=== PATIENT | female | born 1950 | race Caucasian/White ===

== ENCOUNTER 2019-09-22 18:21 | Emergency (ER) | payer SELFPAY ==
[~2019-09-22] VITALS: Ht 154.9 cm; Wt 59.9 kg
[~2019-09-22 18:21] MED LIST: ATEN50TA2 PO; METF-938 PO
[2019-09-22 18:47] VITALS: BP 120/67
--- NOTE | 2019-09-22 19:55 | NUR ---
PT TAKEN TO BED #11 VIA WHEELCHAIR.
--- NOTE | 2019-09-22 19:57 | NUR ---
68 Y/O FEMALE PRESENTED TO ED C/O COUGH/BODY ACHES / RIGHT FLANK PAIN X 2 DAYS. PT STATES SHE HAS TAKEN MEDICATION, NOT SURE THE NAME , W/ NO RELIEF. PT BREATHING EVEN AND UNLABORED, SA02 94%. A/O X4. PT DENIES N/V/D/FEVER. PT RESTING IN BED, LOCKED AND IN LOWEST POSITION, HOB ELEVATED, SIDE RAILS X 2 FOR PT SAFETY. PT CONNECTED TO REHABILITATION WORKER, PULSE OX AND BP CUFF. PMH: DM, HTN NKA
--- NOTE | 2019-09-22 20:34 | NUR ---
PT C/O RIGHT FLANK PAIN 10/10, ERMD MADE AWARE. PER ERMD ADMINISTER IVP TORADOL 30MG.
[2019-09-22] MEDS ORDERED: KETOROLAC 30 MG/ML VIAL IVP ONE (20:35)
[2019-09-22] MEDS ORDERED: NACL 0.9% 1,000 ML IV ONE (20:40)
[2019-09-22 20:41] LABS: BASOPHILS # (AUTO) 0.1 K/uL (0.00-0.22); BASOPHILS % (AUTO) 0.7 % (0.0-2.0); HEMATOCRIT 35.6 % (36-48); LYMPHOCYTES # (AUTO) 1.2 K/uL (2.5-16.5); LYMPHOCYTES % (AUTO) 14.9 % (20.5-51.1); MEAN CORPUSCULAR HEMOGLOBIN 32 pg (27-31); MEAN CORPUSCULAR HGB CONC 34 g/dL (33-37); MEAN CORPUSCULAR VOLUME 93.9 fL (80-94); MONOCYTES # (AUTO) 0.5 K/uL (0.8-1.0); MONOCYTES % (AUTO) 6.4 % (1.7-9.3); NEUTROPHILS # (AUTO) 6.2 K/uL (1.8-7.7); PLATELET COUNT (AUTO) 178 K/uL (140-450); RED BLOOD CELL COUNT(AUTO) 3.79 MIL/uL (4.20-5.40); RED CELL DISTRIBUTION WIDTH 12.9 % (11.6-13.7); WHITE BLOOD COUNT (AUTO) 7.9 K/uL (4.8-10.8)
[2019-09-22 21:19] LABS: ALBUMIN 3.3 g/dL (3.4-5.0); ANION GAP 14.7 (8-16); CARBON DIOXIDE 25.4 mmol/L (21-32); CREATININE 0.9 mg/dL (0.6-1.3); POTASSIUM 4.1 mmol/L (3.5-5.1); TOTAL BILIRUBIN 0.4 mg/dL (0.0-1.0)
--- NOTE | 2019-09-22 22:30 | NUR ---
PT RESTING IN BED, AROUSABLE BY VERBAL STIMULATION, BED LOCKED AND IN LOWEST POSITION, HOB ELEVATED , SIDE RAILS X2 FOR PT SAFETY.
--- NOTE | 2019-09-23 00:01 | NUR ---
PT RESTING IN BED, LOCKED AND IN LOWEST POSITION, HOB ELEVATED, SIDE RAIL X2 FOR PT SAFETY . PT VSS.
[2019-09-23 00:07] LABS: APPEARANCE,URINE CLEAR (CLEAR); BILIRUBIN,URINE NEGATIVE (NEGATIVE); BLOOD, URINE NEGATIVE (NEGATIVE); COLOR,URINE YELLOW (YELLOW); LEUKOCYTE ESTERASE ,URINE TRACE (NEGATIVE); NITRITE, URINE NEGATIVE (NEGATIVE); UGLUCOSE NEGATIVE (NEGATIVE)
[2019-09-23 00:10] LABS: RBC,URINE 0-5 /HPF (0-5); WBC,URINE 0-5 /HPF (0-5)
[2019-09-23 00:31] VITALS: BP 102/55
--- NOTE | 2019-09-23 00:31 | NUR ---
Patient discharged with v/s stable. Written and verbal after care instructions given and explained. Patient alert, oriented and verbalized understanding of instructions. Wheel Chair Assisted with to car. All questions addressed prior to discharge. ID band removed. Patient advised to follow up with PMD. Rx of ACETAMINOPHEN, AZITHROMYCIN AND ALBUTEROL given. Patient educated on indication of medication including possible reaction and side effects. Opportunity to ask questions provided and answered.
[2019-09-25] MEDS ORDERED: LISI-420 PO (20:44)
[2019-09-25] MEDS ORDERED: SITA100T8 PO (20:44)
[2019-09-25] MEDS ORDERED: SIMV40TA1 PO (20:44)
[2019-09-25] MEDS ORDERED: GLIP10TA3 PO (20:44)
== END 2019-09-23 00:31 | disposition home or self-care (01) ==
LOC: MED 18:21
DX: J18.9 Pneumonia, unspecified organism (principal); I10 Essential (primary) hypertension; E11.9 Type 2 diabetes mellitus without complications; Z20.828 Contact with and (suspected) exposure to other viral communicable diseases; Z79.899 Other long term (current) drug therapy
CPT/HCPCS: 36415; 71045; 80053; 81001; 85025; 96374; 99284; J1885; J7030; Q0092; 81025

== ENCOUNTER 2020-04-15 19:20 | Emergency (ER) | payer MEDICAID, SELFPAY ==
[~2020-04-15] VITALS: Ht 152.4 cm; Wt 59.9 kg
[~2020-04-15 19:20] MED LIST changes: +ASCO-519 PO; +ASPI-1205 PO; -ATEN50TA2 PO; +AZIT250T3 PO; +CHOL400T12 PO; +DEXA6TAB8 PO; +GLIP10TA3 PO; +LISI-420 PO; -METF-938 PO; +SIMV40TA1 PO; +SITA100T8 PO; +ZINC220C28 PO
[2020-04-15 19:27] VITALS: BP 151/87
[2020-04-15] MEDS ORDERED: ASPIRIN 81 MG TAB.CHEW PO ONE (19:35)
[2020-04-15] MEDS ORDERED: NACL 0.9% 500 ML IV ONE (19:35)
[2020-04-15] MEDS ORDERED: KETOROLAC 30 MG/ML VIAL IVP ONE (19:40)
[2020-04-15] MEDS ORDERED: PANTOPRAZOLE 40 MG INJ VIAL IVP ONE (19:40)
[2020-04-15 19:55] LABS: BASOPHILS # (AUTO) 0.1 K/uL (0.00-0.22); EOSINOPHILS # (AUTO) 0.2 K/uL (0-0.4); NEUTROPHILS # (AUTO) 4.6 K/uL (1.8-7.7); RED BLOOD CELL COUNT(AUTO) 4.29 MIL/uL (4.20-5.40)
[2020-04-15 20:06] LABS: ALBUMIN 4.1 g/dL (3.4-5.0); ANION GAP 14.4 (8-16); BASOPHILS % (AUTO) 0.9 % (0.0-2.0); CARBON DIOXIDE 27.6 mmol/L (21-32); EOSINOPHILS % (AUTO) 1.7 % (0.0-4.0); HEMATOCRIT 40.2 % (36-48); HEMOGLOBIN 13.8 g/dL (12.0-16.0); LYMPHOCYTES % (AUTO) 41.9 % (20.5-51.1); MEAN CORPUSCULAR HEMOGLOBIN 32 pg (27-31); MEAN CORPUSCULAR HGB CONC 34 g/dL (33-37); MEAN CORPUSCULAR VOLUME 93.7 fL (80-94); MONOCYTES # (AUTO) 0.6 K/uL (0.8-1.0); MONOCYTES % (AUTO) 6.7 % (1.7-9.3); NEUTROPHILS % (AUTO) 48.8 % (42.2-75.2); PLATELET COUNT (AUTO) 332 K/uL (140-450); RED CELL DISTRIBUTION WIDTH 12.6 % (11.6-13.7); TOTAL BILIRUBIN 0.3 mg/dL (0.0-1.0); WHITE BLOOD COUNT (AUTO) 9.4 K/uL (4.8-10.8)
[2020-04-15] MEDS ORDERED: MORPHINE SULFATE 2 MG/ML SYR IVP ONE (20:35)
[2020-04-15 21:24] VITALS: BP 106/67
== END 2020-04-15 21:09 | disposition home or self-care (01) ==
LOC: MED 19:20
DX: R07.89 Other chest pain (principal); K29.70 Gastritis, unspecified, without bleeding; E11.9 Type 2 diabetes mellitus without complications; I10 Essential (primary) hypertension; Z90.49 Acquired absence of other specified parts of digestive tract; Z79.899 Other long term (current) drug therapy
CPT/HCPCS: 36415; 71045; 80053; 84484; 85025; 85379; 85610; 85730; 96374; 96375; 99285; C9113; J1885; J2270; J7030

== ENCOUNTER 2020-06-19 17:37 | Emergency (ER) | payer MEDICAID ==
[~2020-06-19] VITALS: Ht 154.9 cm; Wt 52.2 kg
[~2020-06-19 17:37] MED LIST changes: -LISI-420 PO; +LISI-487 PO
[2020-06-19 17:44] VITALS: BP 145/87
--- NOTE | 2020-06-19 17:50 | NUR ---
Pt ambulated to bed 9.
--- NOTE | 2020-06-19 18:01 | NUR ---
69 Y/O FEMALE C/O PELVIC PAIN x3 DAYS, LEG PAIN X1 MONTH (PT STATES SHE HAS THE SENSATION OF PINS AND NEEDLES AT BLE), HEAD PAIN. PT DENIES INJURY. PT RATES PAIN 10/10 IN HER HEAD BUT IS NOT ABLE TO DESCRIBE THE KIND OF PAIN. PT C/O TINGLING IN ALL EXTREMETIES WITH NUMBNESS IN FINGERS. PT HAS FULL SENSATION OF EXTREMETIES, FULL ROM, WITH CAP REFILL <3 SECONDS. PT IS ABLE TO AMBULATE WITH EVEN STEADY GAIT. PT STATES SHE HAD CHILLS AND FEVER BUT ORAL TEMP IS 98.8. PT DENIES N/V. DENIES DYSURIA. PT STATES DM IS UNCONTROLLED- EITHER HIGH OR LOW- BS 64. PT STATES SHE TOOK 500 ACETAMINOPHEN WITH NO RELEIF. PT IS A/O X4 WITH EVEN AND UNLABORED RESPIRATIONS. PMH: DM, HTN,HLD NKDA
--- NOTE | 2020-06-19 18:17 | NUR ---
DR ROMERO AT BEDSIDE
[2020-06-19] MEDS ORDERED: ACETAMINOPHEN 325 MG TAB PO ONE (18:30)
--- NOTE | 2020-06-19 18:44 | NUR ---
PT AMBULATED TO RESTROOM FOR URINE SAMPLE WITH STEADY GAIT
[2020-06-19 18:57] LABS: BASOPHILS # (AUTO) 0.1 K/uL (0.00-0.22); BASOPHILS % (AUTO) 1.1 % (0.0-2.0); EOSINOPHILS # (AUTO) 0.2 K/uL (0-0.4); EOSINOPHILS % (AUTO) 1.5 % (0.0-4.0); HEMOGLOBIN 12.7 g/dL (12.0-16.0); LYMPHOCYTES # (AUTO) 3.9 K/uL (2.5-16.5); LYMPHOCYTES % (AUTO) 34.3 % (20.5-51.1); MEAN CORPUSCULAR HEMOGLOBIN 32 pg (27-31); MEAN CORPUSCULAR HGB CONC 34 g/dL (33-37); MEAN CORPUSCULAR VOLUME 94.4 fL (80-94); MONOCYTES # (AUTO) 0.9 K/uL (0.8-1.0); MONOCYTES % (AUTO) 8.1 % (1.7-9.3); NEUTROPHILS # (AUTO) 6.3 K/uL (1.8-7.7); PLATELET COUNT (AUTO) 316 K/uL (140-450); RED BLOOD CELL COUNT(AUTO) 3.92 MIL/uL (4.20-5.40); RED CELL DISTRIBUTION WIDTH 12.5 % (11.6-13.7); WHITE BLOOD COUNT (AUTO) 11.5 K/uL (4.8-10.8)
--- NOTE | 2020-06-19 19:20 | NUR ---
GAVE REPORT TO MIKE AND CHAITANYA RNS, TRANSFER OF CARE AT THIS TIME.
--- NOTE | 2020-06-19 19:21 | NUR ---
RECEIVED REPORT FROM SKYLAR MONTOYA FOR CONTINUITY OF CARE
[2020-06-19 19:23] LABS: ANION GAP 13.2 (8-16); CARBON DIOXIDE 26.7 mmol/L (21-32); CREATININE 0.9 mg/dL (0.6-1.3); POTASSIUM 3.9 mmol/L (3.5-5.1)
[2020-06-19] MEDS ORDERED: IBUPROFEN 400 MG TAB PO ONE (20:20)
[2020-06-19] MEDS ORDERED: ONDANSETRON 4 MG ODT PO ONE (20:20)
[2020-06-19] MEDS ORDERED: NAPR-54 PO (20:28)
[2020-06-19 20:47] VITALS: BP 145/87
== END 2020-06-19 20:47 | disposition home or self-care (01) ==
LOC: MED 17:37
DX: E11.40 Type 2 diabetes mellitus with diabetic neuropathy, unspecified (principal); G44.221 Chronic tension-type headache, intractable; I10 Essential (primary) hypertension; Z79.899 Other long term (current) drug therapy
CPT/HCPCS: 36415; 80048; 81002; 85025; 99284; Q0162

== ENCOUNTER 2021-07-26 12:44 | Emergency (ER) | payer MEDICAID ==
[~2021-07-26] VITALS: Ht 157.5 cm; Wt 60.3 kg
[~2021-07-26 12:44] MED LIST changes: +NAPR-54 PO
[2021-07-26 13:04] VITALS: BP 137/73
--- NOTE | 2021-07-26 14:59 | NUR ---
Patient ambulated with steady gait to bed 7.
--- NOTE | 2021-07-26 15:09 | NUR ---
XR AT PT BEDSIDE
--- NOTE | 2021-07-26 15:10 | NUR ---
70 Y/O FEMALE C/O SOB XLAST NIGHT. SPO2 97% AT THIS TIME. PT ALSO C/O FATIGUE AND HAVING "HIGH BP LAST NIGHT OF 160/90". PT TOOK TYLENOL AT 0800 THIS MORNING, DENIES ANY PAIN AT THIS TIME. PT DENIES CHEST PAIN, SOB. PT ALERT AND ORIENTED X4. BED LOCKED IN LWEST POSITION. BED RAIL X1. PMH:HTN, DM,HDL, CHRONIC HEAD/NECK PAIN. ALLERGIES:LORATADINE
--- NOTE | 2021-07-26 15:17 | NUR ---
LAB AT PT BEDSIDE
--- NOTE | 2021-07-26 15:19 | NUR ---
URINE HANDED TO LAB
[2021-07-26 15:43] LABS: BASOPHILS % (AUTO) 0.7 % (0.0-2.0); EOSINOPHILS # (AUTO) 0.2 K/uL (0-0.4); EOSINOPHILS % (AUTO) 2.5 % (0.0-4.0); HEMATOCRIT 38.5 % (36-48); HEMOGLOBIN 12.9 g/dL (12.0-16.0); LYMPHOCYTES # (AUTO) 2.5 K/uL (2.5-16.5); LYMPHOCYTES % (AUTO) 36.4 % (20.5-51.1); MEAN CORPUSCULAR HEMOGLOBIN 32 pg (27-31); MEAN CORPUSCULAR HGB CONC 34 g/dL (33-37); MEAN CORPUSCULAR VOLUME 94.4 fL (80-94); MONOCYTES # (AUTO) 0.5 K/uL (0.8-1.0); MONOCYTES % (AUTO) 6.9 % (1.7-9.3); NEUTROPHILS # (AUTO) 3.7 K/uL (1.8-7.7); NEUTROPHILS % (AUTO) 53.5 % (42.2-75.2); PLATELET COUNT (AUTO) 300 K/uL (140-450); RED BLOOD CELL COUNT(AUTO) 4.08 MIL/uL (4.20-5.40); RED CELL DISTRIBUTION WIDTH 12.3 % (11.6-13.7); WHITE BLOOD COUNT (AUTO) 6.9 K/uL (4.8-10.8)
[2021-07-26 16:13] LABS: ANION GAP 10.7 (8-16); ASPARTATE AMINOTRANSFERASE 10 U/L (15-37); CARBON DIOXIDE 28.1 mmol/L (21-32); CHLORIDE 102 mmol/L (98-107); CREATININE 0.7 mg/dL (0.6-1.3); GLUCOSE 131 mg/dL (74-106); POTASSIUM 3.8 mmol/L (3.5-5.1); SODIUM SERUM 137 mmol/L (136-145); TOTAL BILIRUBIN 0.2 mg/dL (0.0-1.0); UREA NITROGEN, BLOOD 20 mg/dL (7-18)
[2021-07-26] MEDS ORDERED: FAMO-90 PO (17:24)
[2021-07-26] MEDS ORDERED: ALUM355S59 PO (17:24)
[2021-07-26] MEDS ORDERED: ALUMINUM HYD/MAG/SIMETHICONE 30 ML UDC PO ONE (17:25)
[2021-07-26] MEDS ORDERED: FAMOTIDINE 20 MG TAB PO ONE (17:25)
[2021-07-26 18:25] VITALS: BP 132/86
--- NOTE | 2021-07-26 18:26 | NUR ---
Patient discharged with v/s stable. Written and verbal after care instructions given and explained. Patient alert, oriented and verbalized understanding of instructions. Ambulatory with steady gait. All questions addressed prior to discharge. ID band removed. Patient advised to follow up with PMD. Rx of MAG/HYDROXY,PEPCID given. Patient educated on indication of medication including possible reaction and side effects. Opportunity to ask questions provided and answered.
== END 2021-07-26 18:26 | disposition home or self-care (01) ==
LOC: MED 12:44
DX: K21.9 Gastro-esophageal reflux disease without esophagitis (principal); R06.02 Shortness of breath; R53.83 Other fatigue; E11.9 Type 2 diabetes mellitus without complications; I10 Essential (primary) hypertension; Z79.84 Long term (current) use of oral hypoglycemic drugs; Z79.82 Long term (current) use of aspirin; Z79.899 Other long term (current) drug therapy; Z88.8 Allergy status to other drugs, medicaments and biological substances
CPT/HCPCS: 36415; 71045; 80053; 83880; 84484; 85025; 93005; 99285

== ENCOUNTER 2022-04-17 18:36 | Emergency (ER) | payer MEDICAID ==
[~2022-04-17] VITALS: Ht 157.5 cm; Wt 69.9 kg
[~2022-04-17 18:36] MED LIST changes: +ALUM355S59 PO; +FAMO-90 PO
[2022-04-17 18:44] VITALS: BP 186/81
--- NOTE | 2022-04-17 19:00 | NUR ---
PT RECEIVED, CARE ASSUMED. PT BIB DAUGHTER FOR EVALUATION OF CHEST PAIN. PT DENIES ANY PAIN NOW. CONNECTED TO TELE MONITOR. AWAITING TO BE SEEN BY
[2022-04-17] MEDS ORDERED: DICYCLOMINE HCL LIQUID 20 MG, ALUMINUM HYD/MAG/SIMETHICONE 30 ML, LIDOCAINE VISCOUS 2% ... PO ONE ×3 (19:40)
[2022-04-17] MEDS ORDERED: LORazepam 0.5 MG TAB PO ONE (19:40)
--- NOTE | 2022-04-17 19:45 | NUR ---
71 Y/O F PRESENTS WITH GAS PRESSURE IN TOP ABDOMEN THAT RADIATES TO HER CHEST AND BACK. PT STATES SHE HAS NVD AND HEADACHES EVERYDAY. PT DENIES ANY WEAKNESS. PT STATES THIS HAS HAPPENED BEFORE AND IS COMMON. PT IS A&OX4, DAUGHTER AT BEDSIDE, MOHAWK SPEAKING ONLY. SKIN INTACT. PMH-DIABETES, HTN, AND CHOLECYSTITIS ALLERGIES- LORATADINE
[2022-04-17 19:53] LABS: BASOPHILS # (AUTO) 0.1 K/uL (0.00-0.22); BASOPHILS % (AUTO) 0.7 % (0.0-2.0); EOSINOPHILS # (AUTO) 0.1 K/uL (0-0.4); HEMATOCRIT 38.4 % (36-48); HEMOGLOBIN 13.1 g/dL (12.0-16.0); LYMPHOCYTES # (AUTO) 3.2 K/uL (2.5-16.5); LYMPHOCYTES % (AUTO) 28.8 % (20.5-51.1); MEAN CORPUSCULAR HEMOGLOBIN 32 pg (27-31); MEAN CORPUSCULAR HGB CONC 34 g/dL (33-37); MEAN CORPUSCULAR VOLUME 93.3 fL (80-94); MONOCYTES # (AUTO) 0.6 K/uL (0.8-1.0); MONOCYTES % (AUTO) 5.7 % (1.7-9.3); NEUTROPHILS # (AUTO) 7.1 K/uL (1.8-7.7); NEUTROPHILS % (AUTO) 63.8 % (42.2-75.2); PLATELET COUNT (AUTO) 324 K/uL (140-450); RED BLOOD CELL COUNT(AUTO) 4.12 MIL/uL (4.20-5.40); RED CELL DISTRIBUTION WIDTH 12.7 % (11.6-13.7); WHITE BLOOD COUNT (AUTO) 11.1 K/uL (4.8-10.8)
[2022-04-17] MEDS ORDERED: ALUMINUM HYD/MAG/SIMETHICONE 30 ML UDC ONE (19:53)
[2022-04-17] MEDS ORDERED: DICYCLOMINE HCL LIQUID 10 MG/5 ML UDC ONE (19:53)
[2022-04-17 20:19] LABS: ALBUMIN 4.3 g/dL (3.4-5.0); ANION GAP 13.3 (8-16); ASPARTATE AMINOTRANSFERASE 14 U/L (15-37); CARBON DIOXIDE 28.4 mmol/L (21-32); CHLORIDE 99 mmol/L (98-107); CREATININE 0.9 mg/dL (0.6-1.3); GLUCOSE 193 mg/dL (74-106); POTASSIUM 3.7 mmol/L (3.5-5.1); SODIUM SERUM 137 mmol/L (136-145); TOTAL BILIRUBIN 0.3 mg/dL (0.0-1.0); UREA NITROGEN, BLOOD 13 mg/dL (7-18)
--- NOTE | 2022-04-17 20:21 | NUR ---
XRAY AT BEDSIDE
--- NOTE | 2022-04-17 20:54 | NUR ---
DR MOBLEY AT BEDSIDE
[2022-04-17] MEDS ORDERED: MELATONIN 3 MG TAB PO PRN (21:00)
[2022-04-17 22:00] VITALS: BP 133/68
[2022-04-17] MEDS ORDERED: MAG355OR2 PO (22:10)
[2022-04-17] MEDS ORDERED: FAMO-90 PO (22:10)
--- NOTE | 2022-04-17 22:17 | NUR ---
Patient discharged with v/s stable. Written and verbal after care instructions given and explained. Patient alert, oriented and verbalized understanding of instructions. Ambulatory with steady gait. All questions addressed prior to discharge. ID band removed. Patient advised to follow up with PMD. Rx of FAMOTIDINE AND MAALOX given. Opportunity to ask questions provided and answered.
[2022-04-17] MEDS ORDERED: MELATONIN 3 MG TAB ONE (22:27)
== END 2022-04-17 22:17 | disposition home or self-care (01) ==
LOC: MED 18:36
DX: R07.9 Chest pain, unspecified (principal); K29.70 Gastritis, unspecified, without bleeding; F41.9 Anxiety disorder, unspecified; E11.9 Type 2 diabetes mellitus without complications; I10 Essential (primary) hypertension; Z79.4 Long term (current) use of insulin; Z79.899 Other long term (current) drug therapy; Z88.8 Allergy status to other drugs, medicaments and biological substances
CPT/HCPCS: 36415; 71045; 80053; 83880; 84484; 85025; 99285; Q0092

== ENCOUNTER 2022-08-12 11:05 | Emergency (ER) | payer MEDICAID ==
[~2022-08-12] VITALS: Ht 147.3 cm; Wt 60.8 kg
[~2022-08-12 11:05] MED LIST changes: +MAG355OR2 PO; +SIMV-373 PO; -SIMV40TA1 PO
[2022-08-12 11:16] VITALS: BP 108/70
--- NOTE | 2022-08-12 11:30 | NUR ---
PATIENT AMBULATED TO BED 3
--- NOTE | 2022-08-12 11:55 | NUR ---
AT BEDSIDE ASSESSING PATIENT
[2022-08-12] MEDS ORDERED: KETOROLAC 30 MG/ML VIAL IM ONE (12:05)
[2022-08-12 12:31] LABS: APPEARANCE,URINE CLEAR (CLEAR); BILIRUBIN,URINE NEGATIVE (NEGATIVE); BLOOD, URINE NEGATIVE (NEGATIVE); COLOR,URINE YELLOW (YELLOW); LEUKOCYTE ESTERASE ,URINE TRACE (NEGATIVE); NITRITE, URINE NEGATIVE (NEGATIVE); UGLUCOSE NEGATIVE (NEGATIVE)
[2022-08-12 13:53] LABS: BASOPHILS % (AUTO) 0.6 % (0.0-2.0); EOSINOPHILS # (AUTO) 0.2 K/uL (0-0.4); EOSINOPHILS % (AUTO) 3.6 % (0.0-4.0); HEMATOCRIT 34.6 % (36-48); HEMOGLOBIN 11.8 g/dL (12.0-16.0); LYMPHOCYTES # (AUTO) 2.2 K/uL (2.5-16.5); LYMPHOCYTES % (AUTO) 32.4 % (20.5-51.1); MEAN CORPUSCULAR HEMOGLOBIN 32 pg (27-31); MEAN CORPUSCULAR HGB CONC 34 g/dL (33-37); MEAN CORPUSCULAR VOLUME 93.3 fL (80-94); MONOCYTES # (AUTO) 0.5 K/uL (0.8-1.0); MONOCYTES % (AUTO) 7.7 % (1.7-9.3); NEUTROPHILS # (AUTO) 3.8 K/uL (1.8-7.7); NEUTROPHILS % (AUTO) 55.7 % (42.2-75.2); PLATELET COUNT (AUTO) 291 K/uL (140-450); RED BLOOD CELL COUNT(AUTO) 3.71 MIL/uL (4.20-5.40); RED CELL DISTRIBUTION WIDTH 13.1 % (11.6-13.7); WHITE BLOOD COUNT (AUTO) 6.8 K/uL (4.8-10.8)
[2022-08-12 14:20] LABS: ALBUMIN 3.3 g/dL (3.4-5.0); ANION GAP 10.1 (8-16); ASPARTATE AMINOTRANSFERASE 20 U/L (15-37); CARBON DIOXIDE 30.2 mmol/L (21-32); CHLORIDE 105 mmol/L (98-107); CREATININE 0.7 mg/dL (0.6-1.3); GLUCOSE 225 mg/dL (74-106); LIPASE 72 U/L (73-393); POTASSIUM 4.3 mmol/L (3.5-5.1); SODIUM SERUM 141 mmol/L (136-145); TOTAL BILIRUBIN 0.2 mg/dL (0.0-1.0); UREA NITROGEN, BLOOD 15 mg/dL (7-18)
[2022-08-12] MEDS ORDERED: CEPH-588 PO (14:52)
[2022-08-12] MEDS ORDERED: ACET-10509 PO (14:52)
--- NOTE | 2022-08-12 15:25 | NUR ---
Patient discharged with v/s stable. Written and verbal after care instructions given and explained. Patient alert, oriented and verbalized understanding of instructions. Ambulatory with steady gait. All questions addressed prior to discharge. ID band removed. Patient advised to follow up with PMD. Rx of TYLENOL, KEFLEX given. Patient educated on indication of medication including possible reaction and side effects. Opportunity to ask questions provided and answered.
[2022-08-12 15:26] VITALS: BP 110/72
== END 2022-08-12 15:26 | disposition home or self-care (01) ==
LOC: MED 11:05
DX: M54.9 Dorsalgia, unspecified (principal); N39.0 Urinary tract infection, site not specified; K57.90 Diverticulosis of intestine, part unspecified, without perforation or abscess without bleeding; E11.9 Type 2 diabetes mellitus without complications; I10 Essential (primary) hypertension; Z90.49 Acquired absence of other specified parts of digestive tract; Z79.84 Long term (current) use of oral hypoglycemic drugs; Z79.899 Other long term (current) drug therapy; Z90.710 Acquired absence of both cervix and uterus
CPT/HCPCS: 36415; 74176; 80053; 81003; 83690; 85025; 96372; 99285; J1885

== ENCOUNTER 2023-03-14 19:14 | Inpatient (IN) | payer MEDICAID ==
[~2023-03-14] VITALS: Ht 154.9 cm; Wt 69.4 kg
[~2023-03-14 19:14] MED LIST changes: +ACET-10509 PO; +CEPH-588 PO; +MIRABULK PO
[2023-03-14 19:26] VITALS: BP 152/84; PULSE 74; RESP 16; TEMP 97.8; O2SAT 98
[2023-03-14] MEDS ORDERED: MORPHINE SULFATE 4 MG/ML SYR IVP ONE (20:30)
[2023-03-14] MEDS ORDERED: NITROGLYCERIN 2% 1 GM PKT TP ONE (20:30)
[2023-03-14] MEDS ORDERED: ASPIRIN 325 MG TAB PO ONE (20:30)
[2023-03-14 20:46] LABS: BASOPHILS # (AUTO) 0.1 K/uL (0.00-0.22); BASOPHILS % (AUTO) 0.8 % (0.0-2.0); EOSINOPHILS # (AUTO) 0.1 K/uL (0-0.4); EOSINOPHILS % (AUTO) 0.6 % (0.0-4.0); HEMATOCRIT 38.6 % (36-48); HEMOGLOBIN 13.4 g/dL (12.0-16.0); LYMPHOCYTES % (AUTO) 32.1 % (20.5-51.1); MEAN CORPUSCULAR HEMOGLOBIN 32 pg (27-31); MEAN CORPUSCULAR HGB CONC 35 g/dL (33-37); MONOCYTES # (AUTO) 0.6 K/uL (0.8-1.0); MONOCYTES % (AUTO) 5.9 % (1.7-9.3); NEUTROPHILS # (AUTO) 5.7 K/uL (1.8-7.7); NEUTROPHILS % (AUTO) 60.6 % (42.2-75.2); PLATELET COUNT (AUTO) 331 K/uL (140-450); RED BLOOD CELL COUNT(AUTO) 4.15 MIL/uL (4.20-5.40); RED CELL DISTRIBUTION WIDTH 13.2 % (11.6-13.7); WHITE BLOOD COUNT (AUTO) 9.4 K/uL (4.8-10.8)
[2023-03-14] MEDS ORDERED: ENALAPRILAT 2.5 MG/2 ML VIAL IVP ONE (20:55)
[2023-03-14 21:11] LABS: ANION GAP 14.3 (8-16); CALCIUM 10.8 mg/dL (8.5-10.1); CARBON DIOXIDE 28.2 mmol/L (21-32); CHLORIDE 102 mmol/L (98-107); CREATININE 0.7 mg/dL (0.6-1.3); GLUCOSE 144 mg/dL (74-106); POTASSIUM 4.5 mmol/L (3.5-5.1); SODIUM SERUM 140 mmol/L (136-145); UREA NITROGEN, BLOOD 14 mg/dL (7-18)
[2023-03-15] MEDS ORDERED: INSU100S22 SUBQ (01:20)
[2023-03-15] MEDS ORDERED: ASPI-1749 PO (01:20)
[2023-03-15] MEDS ORDERED: GLIP10TE PO (01:20)
[2023-03-15] MEDS ORDERED: LISI-487 PO (01:20)
[2023-03-15] MEDS ORDERED: MORPHINE SULFATE 2 MG/ML SYR IVP ONE (05:00)
[2023-03-15] MEDS: ASPIRIN 81 MG TAB.CHEW PO SCH (08:15)
[2023-03-15] MEDS ORDERED: DEXTROSE 50% 50 ML SYR IVP PRN (08:45)
[2023-03-15] MEDS: INSULIN LANTUS 100 UNITS/ML 10 ML VIAL SUBQ SCH (09:53)
[2023-03-15] MEDS: lisinopriL 20 MG TAB PO SCH (09:54)
[2023-03-15] MEDS: BLOOD GLUCOSE MONITORING 1 DEV DEV FS SCH ×3 (11:30→20:46)
[2023-03-15] MEDS: INSULIN LISPRO SLIDING SCALE 100 UNITS/ML VIAL SUBQ PRN ×2 (12:07→20:55)
[2023-03-15 14:25] VITALS: O2SAT 98
[2023-03-15 18:00] VITALS: O2SAT 98
[2023-03-15 19:45] VITALS: PULSE 69
[2023-03-15 20:30] VITALS: PULSE 69
[2023-03-15] MEDS ORDERED: SIMVASTATIN 40 MG TAB PO SCH (21:00)
[2023-03-15] MEDS ORDERED: HYDROcodone/APAP 5/325 MG 1 TAB TAB PO PRN (22:45)
[2023-03-15] MEDS ORDERED: MORPHINE SULFATE 2 MG/ML SYR IVP PRN (22:45)
[2023-03-15] MEDS: ACETAMINOPHEN 325 MG TAB PO PRN (23:26)
[2023-03-16] VITALS: BP 111/59; PULSE 69; PULSE 72; RESP 20; TEMP 97.9; O2SAT 94
[2023-03-16 04:00] VITALS: BP 119/55; PULSE 59; PULSE 63; RESP 20; TEMP 97.9; O2SAT 95
[2023-03-16] MEDS: BLOOD GLUCOSE MONITORING 1 DEV DEV FS SCH ×2 (06:44→11:30)
[2023-03-16] MEDS: INSULIN LISPRO SLIDING SCALE 100 UNITS/ML VIAL SUBQ PRN (06:47)
[2023-03-16] MEDS: lisinopriL 20 MG TAB PO SCH (10:20)
[2023-03-16] MEDS: ASPIRIN 81 MG TAB.CHEW PO SCH (10:20)
[2023-03-16] MEDS: ACETAMINOPHEN 325 MG TAB PO PRN (10:21)
[2023-03-16] MEDS: INSULIN LANTUS 100 UNITS/ML 10 ML VIAL SUBQ SCH (10:29)
[2023-03-16 16:54] VITALS: BP 112/70; PULSE 69; RESP 18; TEMP 98
== END 2023-03-16 17:30 | disposition home or self-care (01) | DRG 203 ==
LOC: MED 19:14 → MTU 03-15 01:50
PROVIDERS: ADMIT Family Medicine; ATTEND Family Medicine
DX: M94.0 Chondrocostal junction syndrome [Tietze] (principal); E11.9 Type 2 diabetes mellitus without complications; I10 Essential (primary) hypertension
CPT/HCPCS: 36415; 71045; 80048; 82948; 83880; 84484; 85025; 85379; 87081; 93005; 93308; 96374; 96375; 99285; J1815; J2270; J3490; Q0092

== ENCOUNTER 2023-03-25 23:31 | Emergency (ER) | payer MEDICAID ==
[~2023-03-25] VITALS: Ht 152.4 cm; Wt 59.0 kg
[~2023-03-25 23:31] MED LIST changes: +ASPI-1749 PO; +GLIP10TE PO; +INSU100S22 SUBQ
[2023-03-25 23:51] VITALS: BP 158/78; PULSE 70; RESP 16; TEMP 97.3; O2SAT 99
== END 2023-03-26 00:11 | disposition left against medical advice (07) ==
LOC: MED 23:31
DX: I10 Essential (primary) hypertension (principal); Z53.21 Procedure and treatment not carried out due to patient leaving prior to being seen by health care provider
CPT/HCPCS: 99281